=== PATIENT | female | born 1930 | race Caucasian/White ===

== ENCOUNTER 2018-12-30 08:55 | Emergency (ER) | payer OTHER ==
[~2018-12-30] VITALS: Ht 152.4 cm; Wt 45.4 kg
[~2018-12-30 08:55] MED LIST: ALBU2.5V13 NEB; ALBUT2 NEB; PRED20TA PO; [UNRECOGNIZED DRUG - REMARK]
[2018-12-30] MEDS ORDERED: methylPREDNISolone SOD SUCC 125 MG/2ML VIAL ONE (09:24)
[2018-12-30] MEDS ORDERED: ALBUTEROL FS 2.5 MG/3 ML VIAL.NEB ONE ×2 (09:25→14:04)
[2018-12-30] MEDS ORDERED: IPRATROPIUM NEB FS 0.5 MG/2.5 ML AMPUL.NEB ONE (09:26)
[2018-12-30 09:30] LABS: BASOPHILS # (AUTO) 0.1 /CMM (0.0-0.2); BASOPHILS % (AUTO) 1.4 % (0.0-2.0); EOSINOPHILS % (AUTO) 1.9 % (0.0-6.0); HEMATOCRIT 41 % (33-45); HEMOGLOBIN 13.3 g/dL (11.5-14.8); LYMPHOCYTES # (AUTO) 1.3 /CMM (0.8-4.8); MEAN CORPUSCULAR HGB CONC 33 g/dl (31.0-36.0); MEAN CORPUSCULAR VOLUME 88 fL (82-100); MONOCYTES # (AUTO) 0.7 /CMM (0.1-1.30); NEUTROPHILS # (AUTO) 4.4 /CMM (1.8-8.9); NEUTROPHILS % (AUTO) 66.7 % (43.0-81.0); PLATELET COUNT (AUTO) 225 /CMM (150-450); RED BLOOD CELL COUNT(AUTO) 4.68 MIL/uL (4.0-5.2); WHITE BLOOD COUNT (AUTO) 6.7 K/uL (4.3-11.0)
[2018-12-30] MEDS ORDERED: IPRATROPIUM NEB FS 0.5 MG/2.5 ML AMPUL.NEB NEB ONE (09:30)
[2018-12-30] MEDS ORDERED: methylPREDNISolone SOD SUCC 125 MG/2ML VIAL IV ONE (09:30)
[2018-12-30] MEDS ORDERED: ALBUTEROL FS 2.5 MG/3 ML VIAL.NEB CONTNEB ONE ×2 (09:30→14:00)
--- NOTE | 2018-12-30 09:43 | NUR ---
PT'S DAUGHTER AT BEDSIDE AWARE W THE PLAN OF CARE. PT'S AWAKE,ALERT AND BREATHING TREATMENT IS GOING ON. PT'S ON MONITOR 100%
[2018-12-30 09:47] LABS: CHLORIDE 105 mmol/L (98-107); POTASSIUM 4.1 mmol/L (3.5-5.1); SODIUM SERUM 142 mmol/L (136-145)
[2018-12-30 09:48] LABS: ALANINE AMINOTRANSFERASE 18 U/L (12-78); ALBUMIN 3.7 g/dL (3.4-5.0); ALKALINE PHOSPHATASE 74 U/L (46-116); ASPARTATE AMINOTRANSFERASE 19 U/L (15-37); BILIRUBIN,DIRECT 0.1 mg/dL (0.0-0.2); BILIRUBIN,TOTAL 0.4 mg/dL (0.2-1.0); CALCIUM, SERUM 9.4 mg/dL (8.5-10.1); CARBON DIOXIDE 31 mmol/L (21-32); CREATININE 0.7 mg/dL (0.6-1.3); GLUCOSE 104 mg/dL (74-106)
[2018-12-30 09:49] LABS: TOTAL PROTEIN, SERUM 6.7 g/dL (6.4-8.2)
[2018-12-30 09:53] LABS: B-TYPE NATRIURETIC PEPTIDE 171 PG/ML (0-125)
[2018-12-30] MEDS ORDERED: BIMA2.5D5 EACHEYE (09:55)
[2018-12-30] MEDS ORDERED: BRIM5DRO11 EACHEYE (09:55)
[2018-12-30 09:59] LABS: UREA NITROGEN, BLOOD 26 mg/dL (7-18)
--- NOTE | 2018-12-30 11:04 | NUR ---
PT AWAKE STATED "I FEEL BETTER". NOTED PT'S ABLE TO SPEAK FULL SENTENCES. NOT IN DISTRESS, HER DAUGHTER AT BEDSIDE. PT REPOSITIONED, SHE HAS LEFT LEG DRESSING NOTED LESION DRY ,RT FOOT EDEMA
--- NOTE | 2018-12-30 12:37 | NUR ---
PT AWAKE AND ALERT. PT IS OKAY TO HAVE SNACKS PER
--- NOTE | 2018-12-30 12:38 | NUR ---
PT'S DAUGHTER AT BEDSIDE REQUESTING FOR [facility]. CHARGE NURSE IS AWARE. CANDIDA AT BEDSIDE
--- NOTE | 2018-12-30 13:26 | NUR ---
INFO. JASMINA LAST CODE STRIPER PROVIDED THAT PT GOT ACCEPTED AT [facility] UNDER DR. BUSH, ACCEPTING ROOM 509-A. CALLING REPORT [phone]. DAUGHTER'S AWARE.
--- NOTE | 2018-12-30 13:26 | NUR ---
TRANSFER INFO: PT GOING TO [facility] DIRECT ADMIT TO ROOM [address] ACCE[address] DR BUSH
--- NOTE | 2018-12-30 13:31 | NUR ---
PER TAQUERIA MOONEY, PT WILL BE TRANSFERRED TO [facility] ROOM 509A REPORT [phone]. AMBULANCE ETA 60 MIN. RACHELLE ADMITTING
[2018-12-30 13:42] VITALS: BP 127/67
--- NOTE | 2018-12-30 13:45 | NUR ---
CALL TO REPORT [phone]. SPOKE TO TAMMI MADE AWARE PT'S COMING BY AMBULANCE 30-60 MINS[address] , DR BUSH. GIVEN CALL BACK NUMBER
--- NOTE | 2018-12-30 13:52 | NUR ---
PT AND HER DAUGHTER IS AWARE ABOUT TRANSFER TO [facility].
--- NOTE | 2018-12-30 14:00 | NUR ---
PT'S COMPLAINING OF SOB. NOTIFIED ER MD. Torres ORDERS ON BREATHING TREATMENT.
--- NOTE | 2018-12-30 14:33 | NUR ---
PT REFUSED BED CHAWLA. ASSISTED THE PT TO THE BATHROOM WITH PORTABLE O2.
--- NOTE | 2018-12-30 14:53 | NUR ---
CALLED [facility]. MADE AWARE THAT PT'S LEAVING. AMBULANCE IS HERE. NOTIFIED DAUGHTER WELL.
== END 2018-12-30 15:04 ==
LOC: ER 08:58
DX: J44.1 Chronic obstructive pulmonary disease with (acute) exacerbation (principal); J90 Pleural effusion, not elsewhere classified; F17.210 Nicotine dependence, cigarettes, uncomplicated; Z90.89 Acquired absence of other organs; Z98.890 Other specified postprocedural states; Z79.899 Other long term (current) drug therapy
CPT/HCPCS: 36415; 71045; 80048; 80076; 83605; 83880; 84484; 85025; 87040; 93005; 96374; 99285; J2930

== ENCOUNTER 2019-01-19 02:01 | Emergency (ER) | payer OTHER ==
[~2019-01-19] VITALS: Ht 152.4 cm; Wt 43.1 kg
[~2019-01-19 02:01] MED LIST changes: +BIMA2.5D5 EACHEYE; +BRIM5DRO11 EACHEYE
--- NOTE | 2019-01-19 02:02 | NUR ---
PT BIB EMS C/O SOB X1 MONTH WORSE IN THE PAST 2 DAYS. BILATERAL WHEEZING HEARD ON AUSCULTATION. ALBUTEROL 5MG GIVEN BY EMS CHEMICAL PRODUCTION MACHINE OPERATOR. PT ON MONITOR IN BED 5. WILL CONTINUE TO MONITOR.
--- NOTE | 2019-01-19 02:17 | NUR ---
20G RWRIST INITIATED. UNABLE TO OBTAIN BLOOD.
[2019-01-19] MEDS ORDERED: methylPREDNISolone SOD SUCC 125 MG/2ML VIAL IV ONE (02:30)
[2019-01-19] MEDS ORDERED: IPRATROPIUM NEB FS 0.5 MG/2.5 ML AMPUL.NEB NEB ONE (02:30)
[2019-01-19] MEDS ORDERED: ALBUTEROL FS 2.5 MG/3 ML VIAL.NEB NEB ONE (02:30)
[2019-01-19] MEDS ORDERED: methylPREDNISolone SOD SUCC 125 MG/2ML VIAL ONE (02:31)
[2019-01-19 02:42] LABS: BASOPHILS # (AUTO) 0.1 /CMM (0.0-0.2); BASOPHILS % (AUTO) 0.9 % (0.0-2.0); HEMATOCRIT 40 % (33-45); HEMOGLOBIN 12.9 g/dL (11.5-14.8); LYMPHOCYTES # (AUTO) 1.1 /CMM (0.8-4.8); LYMPHOCYTES % (AUTO) 17.2 % (20.0-44.0); MEAN CORPUSCULAR HGB CONC 32 g/dl (31.0-36.0); MEAN CORPUSCULAR VOLUME 87 fL (82-100); MONOCYTES # (AUTO) 0.7 /CMM (0.1-1.30); MONOCYTES % (AUTO) 11.2 % (2.0-12.0); NEUTROPHILS # (AUTO) 4.2 /CMM (1.8-8.9); NEUTROPHILS % (AUTO) 67.7 % (43.0-81.0); PLATELET COUNT (AUTO) 200 /CMM (150-450); RED BLOOD CELL COUNT(AUTO) 4.62 MIL/uL (4.0-5.2); WHITE BLOOD COUNT (AUTO) 6.2 K/uL (4.3-11.0)
[2019-01-19 02:44] LABS: CALCIUM, SERUM 9.2 mg/dL (8.5-10.1); CARBON DIOXIDE 30 mmol/L (21-32); CHLORIDE 102 mmol/L (98-107); CREATININE 0.7 mg/dL (0.6-1.3); GLUCOSE 131 mg/dL (74-106); POTASSIUM 3.9 mmol/L (3.5-5.1); SODIUM SERUM 139 mmol/L (136-145); UREA NITROGEN, BLOOD 26 mg/dL (7-18)
[2019-01-19] MEDS ORDERED: ALBUTEROL FS 2.5 MG/3 ML VIAL.NEB ONE (02:48)
[2019-01-19] MEDS ORDERED: IPRATROPIUM NEB FS 0.5 MG/2.5 ML AMPUL.NEB ONE (02:48)
--- NOTE | 2019-01-19 03:32 | NUR ---
Patient is resting comfortably in bed with eyes closed. Easily aroused. VSS.
--- NOTE | 2019-01-19 05:06 | NUR ---
1HR AMBULNZ ETA: [id number]
[2019-01-19 05:26] VITALS: BP 129/61
--- NOTE | 2019-01-19 06:02 | NUR ---
Patient does not wish to proceed with medical care recommended by Dr. MUNOZ. Patient given information related to possible complications, up to and including , which could occur as a result of leaving the hospital at this time. Patient verbalizes understanding of risks involved due to leaving against medical advice. Patient has signed AMA form.
== END 2019-01-19 06:55 | disposition left against medical advice (07) ==
LOC: ER 02:02
DX: J44.1 Chronic obstructive pulmonary disease with (acute) exacerbation (principal); F12.10 Cannabis abuse, uncomplicated; F17.210 Nicotine dependence, cigarettes, uncomplicated; Z90.89 Acquired absence of other organs; Z98.41 Cataract extraction status, right eye; Z98.42 Cataract extraction status, left eye; Z60.2 Problems related to living alone
CPT/HCPCS: 36415; 71045; 80048; 84484; 85025; 93005; 94644; 96374; 99285; J2930

== ENCOUNTER 2019-02-17 00:37 | Emergency (ER) | payer OTHER ==
[~2019-02-17] VITALS: Ht 152.4 cm; Wt 48.1 kg
[~2019-02-17 00:37] MED LIST changes: -PRED20TA PO; -[UNRECOGNIZED DRUG - REMARK]
--- NOTE | 2019-02-17 00:47 | NUR ---
PT AAOX4. C/O SOB, LABORED W/ ACCESSORY MUSCLE USE. PER PATIENT "I HAVE COPD AND I COULDNT BREATH SO I CALLED [phone]." PT HOOKED TO MONITOR AND PULSE OX. PLACED ON NON REBREATHER 15L. WILL CONTINUE TO MONIOR.
[2019-02-17] MEDS ORDERED: ALBUTEROL FS 2.5 MG/3 ML VIAL.NEB ONE (00:59)
[2019-02-17] MEDS ORDERED: ALBUTEROL FS 2.5 MG/3 ML VIAL.NEB CONTNEB ONE (01:00)
--- NOTE | 2019-02-17 01:00 | NUR ---
RT NOTES: PT REFUSED BIPAP. PT NOT COMPLIANT. PT REMOVES BIPAP MASK. MD PARKS AWARE. Addendum: 02/17/19 at 0115 by BUDDY RUBI RT Amended: Links added.
[2019-02-17 01:08] LABS: BASOPHILS # (AUTO) 0.1 /CMM (0.0-0.2); BASOPHILS % (AUTO) 0.7 % (0.0-2.0); EOSINOPHILS % (AUTO) 3.1 % (0.0-6.0); HEMATOCRIT 40 % (33-45); HEMOGLOBIN 12.9 g/dL (11.5-14.8); LYMPHOCYTES # (AUTO) 1.2 /CMM (0.8-4.8); LYMPHOCYTES % (AUTO) 14.7 % (20.0-44.0); MEAN CORPUSCULAR HGB CONC 32 g/dl (31.0-36.0); MEAN CORPUSCULAR VOLUME 88 fL (82-100); MONOCYTES # (AUTO) 0.8 /CMM (0.1-1.30); MONOCYTES % (AUTO) 9.7 % (2.0-12.0); NEUTROPHILS # (AUTO) 5.7 /CMM (1.8-8.9); NEUTROPHILS % (AUTO) 71.8 % (43.0-81.0); PLATELET COUNT (AUTO) 240 /CMM (150-450); RED BLOOD CELL COUNT(AUTO) 4.49 MIL/uL (4.0-5.2)
--- NOTE | 2019-02-17 01:15 | NUR ---
XRAY AT BEDSIDE
[2019-02-17 01:17] LABS: CALCIUM, SERUM 9.7 mg/dL (8.5-10.1); CARBON DIOXIDE 30 mmol/L (21-32); CHLORIDE 103 mmol/L (98-107); CREATININE 0.7 mg/dL (0.6-1.3); GLUCOSE 144 mg/dL (74-106); POTASSIUM 4.8 mmol/L (3.5-5.1); SODIUM SERUM 138 mmol/L (136-145); UREA NITROGEN, BLOOD 19 mg/dL (7-18)
[2019-02-17 01:30] LABS: B-TYPE NATRIURETIC PEPTIDE 195 PG/ML (0-125)
--- NOTE | 2019-02-17 02:43 | NUR ---
Patient is resting comfortably in bed. Easily aroused. VSS.
--- NOTE | 2019-02-17 02:59 | NUR ---
Patient is resting comfortably in bed, sleeping. Easily aroused. VSS.
[2019-02-17 03:11] LABS: ABG BASE EXCESS -0.4 mmol/L; ABG OXYGEN SATURATION 91.1 % (92.0-98.5); ABG PCO2 41.5 mmHg (35.0-45.0); ABG PO2 63.5 mmHg (75.0-100.0); AaDO2 87.2 mmHg; COHb 0.8 % (0.5-1.5); MetHb 0.4 % (0.0-1.5); SITE, ABG Left Radial; VENT MODE, BG NC 2LPM 28%
--- NOTE | 2019-02-17 04:20 | NUR ---
Patient does not wish to proceed with medical care recommended by Patient given information related to possible complications, up to and including , which could occur as a result of leaving the hospital at this time. Patient verbalizes understanding of risks involved due to leaving against medical advice. Patient has signed AMA form.
[2019-02-17 04:39] VITALS: BP 118/64
== END 2019-02-17 04:30 | disposition left against medical advice (07) ==
LOC: ER 00:39
DX: J44.1 Chronic obstructive pulmonary disease with (acute) exacerbation (principal); F17.200 Nicotine dependence, unspecified, uncomplicated; Z98.890 Other specified postprocedural states; Z90.89 Acquired absence of other organs; Z60.2 Problems related to living alone; Z79.899 Other long term (current) drug therapy
CPT/HCPCS: 36415; 36600; 71045-TC; 80048-TC; 82803-TC; 83880; 84484-TC; 85025-TC

== ENCOUNTER 2019-02-24 02:31 | Emergency (ER) | payer OTHER ==
[~2019-02-24] VITALS: Ht 165.1 cm; Wt 49.4 kg
--- NOTE | 2019-02-24 02:31 | NUR ---
PT MARIE FROM HOME C/O SOB. PT ARRIVED TO ED WITH CPAP, PT STATES SHE FEELS BETTER. AAOX4. VITAL SIGNS STABLE. PLACED ON CONTINUOUS POLYTECHNIC TEACHER AND PULSE OX. WILL CONTINUE TO MONITOR
[2019-02-24] MEDS ORDERED: Magnesium 1GM/D5W 100ML PREMIX 200 ML IV ONE ×2 (02:33→02:39)
--- NOTE | 2019-02-24 02:33 | NUR ---
RT AT BEDSIDE FOR ABG
[2019-02-24] MEDS ORDERED: methylPREDNISolone SOD SUCC 125 MG/2ML VIAL ONE (02:39)
--- NOTE | 2019-02-24 02:40 | NUR ---
RT AT BEDSIDE. REMOVED PT FROM CPAP AND PLACED ON 2L NC. PT TOLERATING WELL, O2 SAT MAINTAIN >96%
--- NOTE | 2019-02-24 02:45 | NUR ---
IV INITIATED LAC 18G. LABS DRAWN FROM SITE. GRAIN BUYER AT BEDSIDE FOR COLLECTION. IV INTACT AND PATENT. PLACED ON SALINE LOCK
[2019-02-24 02:55] LABS: ABG BASE EXCESS -0.2 mmol/L; ABG OXYGEN SATURATION 93.5 % (92.0-98.5); ABG PH 7.383 (7.350-7.450); ABG PO2 72.5 mmHg (75.0-100.0); AaDO2 105.4 mmHg; COHb 1.5 % (0.5-1.5); MetHb 0.4 % (0.0-1.5); O2Hb 91.7 % (94.0-97.0); SITE, ABG Right Radial; VENT MODE, BG Nasal Cannula
[2019-02-24] MEDS ORDERED: IPRATROPIUM NEB FS 0.5 MG/2.5 ML AMPUL.NEB ONE (02:57)
[2019-02-24] MEDS ORDERED: ALBUTEROL FS 2.5 MG/3 ML VIAL.NEB ONE (02:57)
[2019-02-24 02:58] LABS: BASOPHILS % (AUTO) 0.4 % (0.0-2.0); EOSINOPHILS % (AUTO) 2.1 % (0.0-6.0); HEMATOCRIT 38 % (33-45); HEMOGLOBIN 12.3 g/dL (11.5-14.8); LYMPHOCYTES # (AUTO) 1.1 /CMM (0.8-4.8); LYMPHOCYTES % (AUTO) 19.2 % (20.0-44.0); MEAN CORPUSCULAR HGB CONC 32 g/dl (31.0-36.0); MEAN CORPUSCULAR VOLUME 87 fL (82-100); MONOCYTES # (AUTO) 0.8 /CMM (0.1-1.30); MONOCYTES % (AUTO) 13.1 % (2.0-12.0); NEUTROPHILS # (AUTO) 3.9 /CMM (1.8-8.9); NEUTROPHILS % (AUTO) 65.2 % (43.0-81.0); PLATELET COUNT (AUTO) 296 /CMM (150-450); RED BLOOD CELL COUNT(AUTO) 4.38 MIL/uL (4.0-5.2)
--- NOTE | 2019-02-24 02:58 | NUR ---
RADIOLOGY AT BEDSIDE FOR XRAY
[2019-02-24] MEDS ORDERED: ALBUTEROL FS 2.5 MG/3 ML VIAL.NEB NEB ONE (03:00)
[2019-02-24] MEDS ORDERED: IPRATROPIUM NEB FS 0.5 MG/2.5 ML AMPUL.NEB NEB ONE (03:00)
[2019-02-24] MEDS ORDERED: methylPREDNISolone SOD SUCC 125 MG/2ML VIAL IV ONE (03:00)
--- NOTE | 2019-02-24 03:06 | NUR ---
RT NOTE ABG taken and results given to MD Belle. Due to normal ABG results, Bipap was not placed on pt per MD Belle Req. Will continue to monitor.
[2019-02-24 03:07] LABS: CARBON DIOXIDE 34 mmol/L (21-32); CHLORIDE 106 mmol/L (98-107); CREATININE 0.7 mg/dL (0.6-1.3); GLUCOSE 108 mg/dL (74-106); POTASSIUM 3.7 mmol/L (3.5-5.1); SODIUM SERUM 142 mmol/L (136-145); UREA NITROGEN, BLOOD 29 mg/dL (7-18)
[2019-02-24 03:20] LABS: ALANINE AMINOTRANSFERASE 22 U/L (12-78); ALBUMIN 3.6 g/dL (3.4-5.0); ALKALINE PHOSPHATASE 87 U/L (46-116); ASPARTATE AMINOTRANSFERASE 23 U/L (15-37); B-TYPE NATRIURETIC PEPTIDE 371 PG/ML (0-125); BILIRUBIN,DIRECT 0.1 mg/dL (0.0-0.2); BILIRUBIN,TOTAL 0.2 mg/dL (0.2-1.0); TOTAL PROTEIN, SERUM 6.7 g/dL (6.4-8.2)
--- NOTE | 2019-02-24 04:53 | NUR ---
Patient discharged to home in stable condition. Written and verbal after care instructions given. Patient verbalizes understanding of instruction.IV removed. Catheter intact and site benign. Pressure and 4x4 applied to site. No bleeding noted.
[2019-02-24 04:54] VITALS: BP 124/81
== END 2019-02-24 04:54 | disposition home or self-care (01) ==
LOC: ER 02:34
DX: J44.1 Chronic obstructive pulmonary disease with (acute) exacerbation (principal); Z90.89 Acquired absence of other organs; Z98.41 Cataract extraction status, right eye; Z98.42 Cataract extraction status, left eye
CPT/HCPCS: 36415; 36600 ×2; 71045; 80048; 80076; 82803; 83880; 84484; 85025; 87804 ×2; 93005; 94640; 96365; 96375; 99284; J2930; J3475

== ENCOUNTER 2019-03-18 22:49 | Emergency (ER) | payer OTHER ==
[~2019-03-18] VITALS: Ht 165.1 cm; Wt 46.3 kg
--- NOTE | 2019-03-18 22:50 | NUR ---
FELIX FROM HOME C/O SOB X1HR HOME OFFICE CLAIM SPECIALIST. ALSO C/O DIARRHEA PER RA, MULTIPLE SPOTS OF FECES AROUND HOUSE, PT AWAKE, ALERT, -SOB, NAD NOTED, PENDING MD STEVENS
[2019-03-18] MEDS ORDERED: IPRATROPIUM NEB FS 0.5 MG/2.5 ML AMPUL.NEB NEB ONE (23:00)
[2019-03-18] MEDS ORDERED: ALBUTEROL FS 2.5 MG/3 ML VIAL.NEB NEB ONE (23:00)
[2019-03-18] MEDS ORDERED: methylPREDNISolone SOD SUCC 125 MG/2ML VIAL IV ONE (23:00)
[2019-03-18 23:12] LABS: BASOPHILS # (AUTO) 0.1 /CMM (0.0-0.2); BASOPHILS % (AUTO) 0.3 % (0.0-2.0)
[2019-03-18] MEDS ORDERED: ALBUTEROL FS 2.5 MG/3 ML VIAL.NEB ONE (23:16)
[2019-03-18] MEDS ORDERED: IPRATROPIUM NEB FS 0.5 MG/2.5 ML AMPUL.NEB ONE (23:16)
[2019-03-18 23:17] LABS: HEMATOCRIT 42 % (33-45); HEMOGLOBIN 13.5 g/dL (11.5-14.8); LYMPHOCYTES # (AUTO) 0.2 /CMM (0.8-4.8); LYMPHOCYTES % (AUTO) 0.9 % (20.0-44.0); MEAN CORPUSCULAR HGB CONC 32 g/dl (31.0-36.0); MEAN CORPUSCULAR VOLUME 88 fL (82-100); MONOCYTES % (AUTO) 7.2 % (2.0-12.0); NEUTROPHILS # (AUTO) 25.7 /CMM (1.8-8.9); NEUTROPHILS % (AUTO) 91.6 % (43.0-81.0); PLATELET COUNT (AUTO) 296 /CMM (150-450); RED BLOOD CELL COUNT(AUTO) 4.83 MIL/uL (4.0-5.2)
[2019-03-18] MEDS ORDERED: methylPREDNISolone SOD SUCC 125 MG/2ML VIAL ONE (23:30)
[2019-03-18 23:34] LABS: ABG BASE EXCESS -2.5 mmol/L; ABG OXYGEN SATURATION 92.6 % (92.0-98.5); ABG PCO2 36.1 mmHg (35.0-45.0); ABG PH 7.398 (7.350-7.450); ABG PO2 68.9 mmHg (75.0-100.0); COHb 1.3 % (0.5-1.5); MetHb 0.5 % (0.0-1.5); O2Hb 90.9 % (94.0-97.0); SITE, ABG Right Brachial; VENT MODE, BG N/C 3L
[2019-03-18 23:39] LABS: CALCIUM, SERUM 10.4 mg/dL (8.5-10.1); CARBON DIOXIDE 29 mmol/L (21-32); CHLORIDE 102 mmol/L (98-107); CREATININE 0.9 mg/dL (0.6-1.3); GLUCOSE 152 mg/dL (74-106); POTASSIUM 5.1 mmol/L (3.5-5.1); SODIUM SERUM 141 mmol/L (136-145); UREA NITROGEN, BLOOD 33 mg/dL (7-18)
[2019-03-18 23:40] LABS: B-TYPE NATRIURETIC PEPTIDE 399 PG/ML (0-125)
--- NOTE | 2019-03-19 00:12 | NUR ---
DAUGHTER AT BEDSIDE, WANTS TO BE UPDATED IF DOCTOR DECIDES TO HAVE PATIENT ADMITTIED, PER DAUGHTER SHE DOES NOT WANT HER MOM TO GO [facility], SHE PREFERS [facility]
--- NOTE | 2019-03-19 00:17 | NUR ---
REPORT REC'D FROM MARCELLO WOMACK FOR LEON.
--- NOTE | 2019-03-19 00:29 | NUR ---
XRAY DONE AT THE BEDSIDE.
--- NOTE | 2019-03-19 00:40 | NUR ---
PT RETURNED FROM CT.
--- NOTE | 2019-03-19 01:13 | NUR ---
CALLED [place] RE: CXR READ
--- NOTE | 2019-03-19 01:22 | NUR ---
PT APPEARS TO BE SLEEPING SOUNDLY. PT IS SLIGHTLY TACHY AT 103. PT IS ON THE MONITOR AND CONTINUOUS PULSE OX. VSS. NAD NOTED.
--- NOTE | 2019-03-19 01:58 | NUR ---
SPOKE TO PT'S DAUGHTER CARLOS, REGARDING PT'S D/C HOME. CARLOS WILL BE HERE IN APPROX 30 MINS. CALLED RT FOR A LONG NASAL CANULA, PT'S CANULA AT HOME WAS THROWN OUT AND SHE IS ON CONTINUOUS O2 AT HOME.
--- NOTE | 2019-03-19 02:35 | NUR ---
IV removed. Catheter intact and site benign. Pressure and 4x4 applied to site. No bleeding noted. Patient discharged to home in stable condition. Written and verbal after care instructions given. Patient and her daughter verbalize understanding of instruction and Rx. Pt left by WC to the car. Pt's daughter had an oxygen tank in the car. 20' NC tubing was given to the Pt's daughter upon discharge. VSS. NAD noted.
[2019-03-19 02:48] VITALS: BP 119/68
== END 2019-03-19 02:35 | disposition home or self-care (01) ==
LOC: ER 22:53
DX: J44.9 Chronic obstructive pulmonary disease, unspecified (principal); F17.200 Nicotine dependence, unspecified, uncomplicated; Z90.89 Acquired absence of other organs; Z60.2 Problems related to living alone; Z79.899 Other long term (current) drug therapy; Z98.49 Cataract extraction status, unspecified eye
CPT/HCPCS: 36415; 36600 ×2; 71045; 80048; 82803; 83880; 84484; 85025; 93005; 94640; 96374; 99284; J2930

== ENCOUNTER 2019-04-12 00:48 | Emergency (ER) | payer OTHER ==
[~2019-04-12] VITALS: Ht 162.6 cm; Wt 45.8 kg
--- NOTE | 2019-04-12 01:09 | NUR ---
PT CAME TO ER ED 2 BIB [facility] C/O SHORTNESS OF BREATH. PATIENT STATES THAT SHE FEELS LIKE SHE IS RUNNING OUT OF BREATH. PT HAS HX OF COPD. PT STILL SMOKES CIGARETTES, "BUT NOT MUCH BEFORE". PT STATES SHE HAS OXYGEN AT 15L THAT SHE USES AT HOME. CALM AND NOT IN ANY DISTRESS. CONNECTED TO THE MONITOR
--- NOTE | 2019-04-12 01:14 | NUR ---
AT BEDSIDE FOR EVAL
[2019-04-12] MEDS ORDERED: ALBUTEROL FS 2.5 MG/3 ML VIAL.NEB NEB ONE (01:30)
[2019-04-12] MEDS ORDERED: predniSONE 50 MG TABLET PO ONE (01:30)
[2019-04-12] MEDS ORDERED: IPRATROPIUM NEB FS 0.5 MG/2.5 ML AMPUL.NEB NEB ONE (01:30)
[2019-04-12] MEDS ORDERED: predniSONE 10 MG TABLET ONE (01:40)
[2019-04-12] MEDS ORDERED: predniSONE 20 MG TABLET ONE (01:40)
--- NOTE | 2019-04-12 01:43 | NUR ---
RT CALLED FOR MEDICATION ADMINISTRATION
--- NOTE | 2019-04-12 02:29 | NUR ---
RT CALLED FOR MEDICATION ADMINISTRATION
[2019-04-12] MEDS ORDERED: IPRATROPIUM NEB FS 0.5 MG/2.5 ML AMPUL.NEB ONE (02:33)
[2019-04-12] MEDS ORDERED: ALBUTEROL FS 2.5 MG/3 ML VIAL.NEB ONE (02:33)
--- NOTE | 2019-04-12 04:51 | NUR ---
AMBULANCE RESERVATION NUMBER: [id number]
--- NOTE | 2019-04-12 06:55 | NUR ---
Patient discharged to home in stable condition. Written and verbal after care instructions given. Patient verbalizes understanding of instruction. Picked up by daughter.
[2019-04-12 06:56] VITALS: BP 121/68
== END 2019-04-12 06:56 | disposition home or self-care (01) ==
LOC: ER 00:49
DX: J44.1 Chronic obstructive pulmonary disease with (acute) exacerbation (principal); F17.200 Nicotine dependence, unspecified, uncomplicated; Z98.890 Other specified postprocedural states; Z90.89 Acquired absence of other organs; Z60.2 Problems related to living alone; Z79.899 Other long term (current) drug therapy
CPT/HCPCS: 71045; 93005; 94640; 99283; J7512 ×2

== ENCOUNTER 2019-05-04 13:39 | Emergency (ER) | payer MEDICARE, OTHER ==
[~2019-05-04] VITALS: Ht 154.9 cm; Wt 55.8 kg
--- NOTE | 2019-05-04 13:39 | NUR ---
BIB [facility] FROM HOME,WORSENING SHORTNESS OF BREATH, PT AWAKE ,ALERT, PT ON MONITOR, NAD NOTED, VSS, PENDING MD STEVENS
[2019-05-04] MEDS ORDERED: IPRATROPIUM NEB FS 0.5 MG/2.5 ML AMPUL.NEB ONE (13:52)
[2019-05-04] MEDS ORDERED: ALBUTEROL FS 2.5 MG/3 ML VIAL.NEB ONE (13:52)
[2019-05-04] MEDS ORDERED: IPRATROPIUM NEB FS 0.5 MG/2.5 ML AMPUL.NEB NEB ONE (14:00)
[2019-05-04] MEDS ORDERED: ALBUTEROL FS 2.5 MG/3 ML VIAL.NEB NEB ONE (14:00)
[2019-05-04 14:07] LABS: BASOPHILS # (AUTO) 0.1 /CMM (0.0-0.2); BASOPHILS % (AUTO) 0.9 % (0.0-2.0); EOSINOPHILS % (AUTO) 4.2 % (0.0-6.0); HEMATOCRIT 38 % (33-45); HEMOGLOBIN 12.2 g/dL (11.5-14.8); LYMPHOCYTES # (AUTO) 0.9 /CMM (0.8-4.8); LYMPHOCYTES % (AUTO) 15.3 % (20.0-44.0); MEAN CORPUSCULAR HGB CONC 32 g/dl (31.0-36.0); MEAN CORPUSCULAR VOLUME 87 fL (82-100); MONOCYTES # (AUTO) 0.7 /CMM (0.1-1.30); MONOCYTES % (AUTO) 12.6 % (2.0-12.0); NEUTROPHILS # (AUTO) 3.8 /CMM (1.8-8.9); PLATELET COUNT (AUTO) 222 /CMM (150-450); RED BLOOD CELL COUNT(AUTO) 4.32 MIL/uL (4.0-5.2); WHITE BLOOD COUNT (AUTO) 5.7 K/uL (4.3-11.0)
--- NOTE | 2019-05-04 14:07 | NUR ---
CALLED CARLOS DAUGHTER, SHE WILL BE HERE SHORTLY
[2019-05-04 14:23] VITALS: BP 125/83
[2019-05-04 14:26] LABS: CALCIUM, SERUM 9.7 mg/dL (8.5-10.1); CARBON DIOXIDE 31 mmol/L (21-32); CHLORIDE 104 mmol/L (98-107); CREATININE 0.6 mg/dL (0.6-1.3); GLUCOSE 96 mg/dL (74-106); POTASSIUM 4.8 mmol/L (3.5-5.1); SODIUM SERUM 140 mmol/L (136-145); UREA NITROGEN, BLOOD 21 mg/dL (7-18)
[2019-05-04] MEDS ORDERED: methylPREDNISolone SOD SUCC 125 MG/2ML VIAL IV ONE (14:30)
[2019-05-04] MEDS ORDERED: methylPREDNISolone SOD SUCC 125 MG/2ML VIAL ONE (14:34)
[2019-05-04 14:39] LABS: ALANINE AMINOTRANSFERASE 19 U/L (12-78); ALBUMIN 3.6 g/dL (3.4-5.0); ALKALINE PHOSPHATASE 84 U/L (46-116); ASPARTATE AMINOTRANSFERASE 26 U/L (15-37); B-TYPE NATRIURETIC PEPTIDE 199 PG/ML (0-125); BILIRUBIN,DIRECT 0.1 mg/dL (0.0-0.2); BILIRUBIN,TOTAL 0.3 mg/dL (0.2-1.0); TOTAL PROTEIN, SERUM 6.6 g/dL (6.4-8.2)
[2019-05-04] MEDS ORDERED: BRIM5DRO3 LEFTEYE (14:39)
[2019-05-04] MEDS ORDERED: BRIN10DR EACHEYE (14:39)
[2019-05-04] MEDS ORDERED: TIOT18CA3 IH (14:39)
[2019-05-04] MEDS ORDERED: ALBU2.5V38 IH ×2 (14:39)
[2019-05-04] MEDS ORDERED: ALBU8.5H8 IH (14:39)
[2019-05-04] MEDS ORDERED: LORA-259 PO (14:41)
[2019-05-04] MEDS ORDERED: MORP15TA PO (14:41)
--- NOTE | 2019-05-04 15:29 | NUR ---
Patient discharged to home in stable condition. Written and verbal after care instructions given. Patient verbalizes understanding of instruction. IV removed. Catheter intact and site benign. Pressure and 4x4 applied to site. No bleeding noted.
== END 2019-05-04 15:44 | disposition home or self-care (01) ==
LOC: ER 13:42
DX: J44.1 Chronic obstructive pulmonary disease with (acute) exacerbation (principal); F17.200 Nicotine dependence, unspecified, uncomplicated; Z98.890 Other specified postprocedural states; Z90.89 Acquired absence of other organs; Z60.2 Problems related to living alone; Z79.899 Other long term (current) drug therapy
CPT/HCPCS: 36415; 71045; 80048; 80076; 83605; 83880; 84484; 85025; 87804 ×2; 93005; 94640; 96374; 99284; J2930

== ENCOUNTER 2019-05-10 06:00 | Emergency (ER) | payer OTHER ==
[~2019-05-10] VITALS: Ht 154.9 cm; Wt 44.5 kg
[~2019-05-10 06:00] MED LIST changes: -ALBU2.5V13 NEB; +ALBU2.5V38 IH; +ALBU8.5H8 IH; -ALBUT2 NEB; -BRIM5DRO11 EACHEYE; +BRIM5DRO3 LEFTEYE; +BRIN10DR EACHEYE; +LORA-259 PO; +MORP15TA PO; +TIOT18CA3 IH
--- NOTE | 2019-05-10 06:00 | NUR ---
PT BIB [facility] FROM HOME WITH A C/O SOB. PT HAS COPD AND SMOKE MARIJUANA. PT ARRIVED WITH A BREATHING TX IN PROCESS. PT IS ABLE TO SPEAK IN FULL SENTENCES.
--- NOTE | 2019-05-10 06:20 | NUR ---
CXR IN PROGRESS AT THE BEDSIDE.
[2019-05-10] MEDS ORDERED: methylPREDNISolone SOD SUCC 125 MG/2ML VIAL ONE (06:21)
[2019-05-10] MEDS ORDERED: ALBUTEROL FS 2.5 MG/3 ML VIAL.NEB ONE ×2 (06:23→07:47)
[2019-05-10] MEDS ORDERED: IPRATROPIUM NEB FS 0.5 MG/2.5 ML AMPUL.NEB ONE ×2 (06:23→07:47)
--- NOTE | 2019-05-10 06:25 | NUR ---
RT AT THE BEDSIDE FOR A BREATHING TX.
--- NOTE | 2019-05-10 06:25 | NUR ---
COOKIE, CLIENT DELIVERY MANAGER, IS AT THE BEDSIDE FOR BLOOD DRAW.
[2019-05-10] MEDS ORDERED: methylPREDNISolone SOD SUCC 125 MG/2ML VIAL IV ONE (06:30)
[2019-05-10] MEDS ORDERED: IPRATROPIUM NEB FS 0.5 MG/2.5 ML AMPUL.NEB NEB ONE (06:30)
[2019-05-10] MEDS ORDERED: ALBUTEROL FS 2.5 MG/3 ML VIAL.NEB NEB ONE (06:30)
[2019-05-10 06:35] LABS: BASOPHILS % (AUTO) 0.6 % (0.0-2.0); EOSINOPHILS % (AUTO) 3.7 % (0.0-6.0); HEMATOCRIT 39 % (33-45); HEMOGLOBIN 12.5 g/dL (11.5-14.8); LYMPHOCYTES # (AUTO) 1.1 /CMM (0.8-4.8); LYMPHOCYTES % (AUTO) 16.6 % (20.0-44.0); MEAN CORPUSCULAR HGB CONC 32 g/dl (31.0-36.0); MEAN CORPUSCULAR VOLUME 87 fL (82-100); MONOCYTES # (AUTO) 0.9 /CMM (0.1-1.30); MONOCYTES % (AUTO) 13.1 % (2.0-12.0); NEUTROPHILS # (AUTO) 4.3 /CMM (1.8-8.9); PLATELET COUNT (AUTO) 257 /CMM (150-450); RED BLOOD CELL COUNT(AUTO) 4.51 MIL/uL (4.0-5.2); WHITE BLOOD COUNT (AUTO) 6.5 K/uL (4.3-11.0)
[2019-05-10 06:44] LABS: CALCIUM, SERUM 9.6 mg/dL (8.5-10.1); CARBON DIOXIDE 34 mmol/L (21-32); CHLORIDE 106 mmol/L (98-107); CREATININE 0.7 mg/dL (0.6-1.3); GLUCOSE 128 mg/dL (74-106); POTASSIUM 4.3 mmol/L (3.5-5.1); SODIUM SERUM 143 mmol/L (136-145); UREA NITROGEN, BLOOD 18 mg/dL (7-18)
--- NOTE | 2019-05-10 06:55 | NUR ---
PT WANTS TO GO HOME. DR ABDUL NOTIFIED.
[2019-05-10 06:57] LABS: ALANINE AMINOTRANSFERASE 17 U/L (12-78); ALBUMIN 3.8 g/dL (3.4-5.0); ALKALINE PHOSPHATASE 71 U/L (46-116); ASPARTATE AMINOTRANSFERASE 19 U/L (15-37); B-TYPE NATRIURETIC PEPTIDE 238 PG/ML (0-125); BILIRUBIN,DIRECT 0.1 mg/dL (0.0-0.2); BILIRUBIN,TOTAL 0.4 mg/dL (0.2-1.0); TOTAL PROTEIN, SERUM 6.6 g/dL (6.4-8.2)
--- NOTE | 2019-05-10 06:59 | NUR ---
DR ABDUL IS AT THE BEDSIDE.
--- NOTE | 2019-05-10 07:00 | NUR ---
CALLED PT'S DAUGHTER, CARLOS, TO AIRCRAFT ENGINEER THE PT.
--- NOTE | 2019-05-10 07:20 | NUR ---
REPORT GIVEN TO MARCELLO GRACIA
--- NOTE | 2019-05-10 07:50 | NUR ---
RT AT BEDSIDE FOR BREATHING TX
--- NOTE | 2019-05-10 08:16 | NUR ---
ASSISTED PATIENT VIA WHEELCHAIR GOING TO DAUGHTER'S CAR. Patient discharged to home in stable condition. Written and verbal after care instructions given. Patient and daughter verbalizes understanding of instruction.
[2019-05-10 08:17] VITALS: BP 135/51
== END 2019-05-10 08:18 | disposition home or self-care (01) ==
LOC: ER 06:01
DX: J44.1 Chronic obstructive pulmonary disease with (acute) exacerbation (principal); F17.200 Nicotine dependence, unspecified, uncomplicated; Z98.890 Other specified postprocedural states; Z90.89 Acquired absence of other organs; Z60.2 Problems related to living alone; Z79.899 Other long term (current) drug therapy
CPT/HCPCS: 36415; 71045; 80048; 80076; 83880; 84484; 85025; 93005; 94640; 96374; 99284; J2930